=== PATIENT | female | born 1950 | race Asian ===

== ENCOUNTER 2022-10-25 19:33 | Emergency (ER) | payer MEDICARE ==
[~2022-10-25] VITALS: Ht 142.2 cm; Wt 54.5 kg
[2022-10-25] MEDS ORDERED: METF-1211 PO (20:07)
[2022-10-25] MEDS ORDERED: LOSA-382 PO (20:10)
[2022-10-25] MEDS ORDERED: ATOR20TA65 PO (20:10)
[2022-10-25] MEDS ORDERED: FEBU40TA3 PO (20:10)
[2022-10-25] MEDS ORDERED: EMPA25TA3 PO (20:10)
[2022-10-25] MEDS ORDERED: ASPI-1444 PO (20:10)
[2022-10-25] MEDS ORDERED: GLIP2.5T2 PO (20:10)
[2022-10-25] MEDS ORDERED: SODIUM CHLORIDE 0.9% 1,000 ML IV ONE (21:15)
[2022-10-25 21:54] LABS: BASOPHILS % (AUTO) 0.8 % (0.0-2.0); EOSINOPHILS % (AUTO) 1.3 % (1.0-6.0); HEMATOCRIT 38.2 % (36-46); HEMOGLOBIN 12.6 g/dL (12.0-16.0); LYMPHOCYTES # (AUTO) 1.3 K/uL (1.0-4.8); LYMPHOCYTES % (AUTO) 15.6 % (22.0-44.0); MEAN CORPUSCULAR HEMOGLOBIN 29.5 pg (26.0-34.0); MEAN CORPUSCULAR VOLUME 89 fL (80-100); MONOCYTES # (AUTO) 0.6 K/uL (0.1-1.0); MONOCYTES % (AUTO) 7.3 % (2.0-9.0); NEUTROPHILS # (AUTO) 6.2 K/uL (1.8-7.7); PLATELET COUNT (AUTO) 219 K/uL (150-450); RED BLOOD CELL COUNT(AUTO) 4.28 MIL/uL (4.00-5.20); RED CELL DISTRIBUTION WIDTH 13.7 % (11.5-14.5)
[2022-10-25 22:01] LABS: CALCIUM, TOTAL 8.6 mg/dL (8.8-10.5); CREATININE 1.37 mg/dL (0.60-1.30); POTASSIUM 4.4 mmol/L (3.5-5.1)
[2022-10-25 22:27] LABS: ALBUMIN 3.3 g/dL (3.4-5.0); BILIRUBIN,TOTAL 0.5 mg/dL (0.1-1.0); TOTAL PROTEIN, SERUM 6.8 g/dL (6.4-8.2)
[2022-10-26 00:45] LABS: APPEARANCE,URINE CLEAR (CLEAR); BILIRUBIN,URINE NEGATIVE (NEGATIVE); GLUCOSE, URINE (UA) >=1000 mg/dL (NEGATIVE); KETONES,URINE NEGATIVE (NEGATIVE); LEUKOCYTE ESTERASE ,URINE NEGATIVE (NEGATIVE); NITRATE,URINE NEGATIVE (NEGATIVE); OCCULT BLOOD,URINE NEGATIVE (NEGATIVE); PH,URINE 5.5 (5.0-8.0); PROTEIN,URINE NEGATIVE (NEGATIVE); SPECIFIC GRAVITIY, URINE 1.007 (1.003-1.030); UROBILINOGEN,URINE <=1.0 mg/dL (<=1.0)
[2022-10-26 01:13] VITALS: BP 134/72; PULSE 63; RESP 16; TEMP 97.3
== END 2022-10-26 01:13 | disposition home or self-care (01) ==
LOC: EMS 19:35
DX: E86.0 Dehydration (principal); R55 Syncope and collapse; E11.9 Type 2 diabetes mellitus without complications
CPT/HCPCS: 99291; 96360; 70450; 80053; 81003; 82550; 83880; 84484; 85025; 36415; 71045; 93005; J7030

== ENCOUNTER 2023-02-27 16:56 | Emergency (ER) | payer MEDICARE ==
[~2023-02-27] VITALS: Ht 149.9 cm; Wt 59.1 kg
[~2023-02-27 16:56] MED LIST: ASPI-1444 PO; ATOR20TA65 PO; EMPA25TA3 PO; FEBU40TA6 PO; GLIP2.5T28 PO; LOSA-382 PO; METF-1211 PO
[2023-02-27 17:17] LABS: GLUCOMETER DEV NAME(LOC) ERT.5; GLUCOSE,POINT OF CARE 250 MG/DL (70-110)
[2023-02-27] MEDS ORDERED: MAGNESIUM CITRATE [LEMON] 300 ML ORAL SOLUTION PO ONE (17:45)
[2023-02-27] MEDS ORDERED: POLY238P PO (17:48)
[2023-02-27 22:08] VITALS: BP 133/80; PULSE 71; RESP 16; TEMP 98.3
== END 2023-02-27 22:23 | disposition home or self-care (01) ==
LOC: EMS 18:16
DX: K59.00 Constipation, unspecified (principal); T50.905A Adverse effect of unspecified drugs, medicaments and biological substances, initial encounter; E11.65 Type 2 diabetes mellitus with hyperglycemia; E11.9 Type 2 diabetes mellitus without complications; E78.00 Pure hypercholesterolemia, unspecified; I10 Essential (primary) hypertension; Y92.89 Other specified places as the place of occurrence of the external cause
CPT/HCPCS: 82962; 99282

== ENCOUNTER 2024-04-24 15:07 | Emergency (ER) | payer MEDICARE ==
[~2024-04-24] VITALS: Ht 147.3 cm; Wt 54.5 kg
[~2024-04-24 15:07] MED LIST changes: -METF-1211 PO; +POLY238P PO
[2024-04-24 15:16] VITALS: TEMP 97.9
[2024-04-24] MEDS ORDERED: GLIP-102 PO (16:37)
[2024-04-24] MEDS ORDERED: ALLO100T PO (16:37)
[2024-04-24] MEDS ORDERED: GABA-529 PO (16:37)
[2024-04-24] MEDS ORDERED: AMLO5TAB66 PO (16:37)
[2024-04-24] MEDS: ACETAMINOPHEN 325 MG TABLET PO ONE (17:06)
[2024-04-24 18:18] VITALS: BP 147/70; PULSE 78; RESP 18; O2SAT 97
== END 2024-04-24 18:21 | disposition home or self-care (01) ==
LOC: EMS 15:07
DX: S83.91XA Sprain of unspecified site of right knee, initial encounter (principal); E11.9 Type 2 diabetes mellitus without complications; E78.00 Pure hypercholesterolemia, unspecified; I10 Essential (primary) hypertension; X58.XXXA Exposure to other specified factors, initial encounter; Y93.89 Activity, other specified; Y92.89 Other specified places as the place of occurrence of the external cause; Y99.8 Other external cause status
CPT/HCPCS: 99283